=== PATIENT | male | born 1995 | race Hispanic/Latino ===

== ENCOUNTER 2019-01-17 20:26 | Emergency (ER) | payer OTHER ==
[2019-01-17 20:35] VITALS: BP 129/72
--- NOTE | 2019-01-17 20:37 | Event Note ---
ED Screening Note ED Screening Note: R FLANK PAIN DIFFICULT TO URINATE BLOOD IN URINE JUST STARTED TODAY NO VOMITING BM TSO NOMRMAL RX MARISOL PSH NONE PMH ULCERS FIBROMYALGIA K STONES This initial assessment/diagnostic orders/clinical plan/treatment(s) is/are subject to change based on patients health status, clinical progression and re-assessment by fellow clinical providers in the ED. Further treatment and workup at subsequent clinical providers discretion. Patient/guardian urged not to elope from the ED as their condition may be serious if not clinically assessed and managed. Initial orders include: UA LABS
[2019-01-17] MEDS ORDERED: TORADOL IV ONE (21:01)
[2019-01-17] MEDS ORDERED: NACL 0.9% 1000 ML 1,000 ML IV ONE (21:01)
[2019-01-17] MEDS ORDERED: ZOFRAN IV ONE (21:01)
[2019-01-17 21:03] LABS: Hemoglobin 15.5 gm/dl (11.8-15.2); Mean Corpuscular HGB Conc 34 % (32-34); Mean Corpuscular Volume 92 fl (84-94); Platelet Count 223 K/mm3 (140-440); Red Cell Distribution Width 13.5 % (13.2-15.2)
[2019-01-17 21:26] LABS: BUN/Creatinine Ratio 8; Blood Urea Nitrogen 7 mg/dL (9-20); Calcium 10.1 mg/dL (8.4-10.2); Hemolysis Index 21
[2019-01-17] MEDS ORDERED: MORPHINE IV ONE (21:32)
[2019-01-17] MEDS ORDERED: MORPHINE ONE (21:35)
[2019-01-17 22:01] LABS: Bacteria,Urine 2+ /HPF (Negative); Bilirubin,Urine NEG (Negative); Blood,Urine LG (Negative); Color,Urine Yellow (Yellow); Protein,Urine <15 mg/dL mg/dL (Negative); Urobilinogen,Urine < 2.0 mg/dL (<2.0)
--- NOTE | 2019-01-17 22:20 | Cat Scan Report ---
CT abdomen pelvis wo con INDICATION / CLINICAL INFORMATION: abd pain. TECHNIQUE: Axial CT imaging of abdomen and pelvis was performed without IV or oral contrast. Coronal and sagitta l reformatted imaging obtained and reviewed. All CT scans at this location are performed using CT dos e reduction for [facility] by means of automated exposure control. COMPARISON: None available. FINDINGS: CT abdomen without contrast demonstrates mild right hydronephrosis. This is caused by a 3 mm calculus in the distal right ureter at the UVJ. Calculus is on the verge of being passed into the urinary re dder. There are additional tiny calculi throughout the collecting system of the right kidney. Similar findings of tiny punctate calculi are also seen in the left kidney without obstruction. The liver, spleen, pancreas, and adrenal glands all appear grossly unremarkable for a noncontrasted e xam. No gallbladder abnormality noted. CT pelvis does not demonstrate any pelvic mass, free fluid, or focal inflammatory change. GI tract is grossly unremarkable. Visualized lung bases are clear. No significant osseous abnormality noted. IMPRESSION: 1. Mild right hydronephrosis caused by a 3 mm calculus in the very distal right ureter, UVJ level. 2. Bilateral nephrolithiasis. Signer Name: Elissa [place] MD Signed: 01/17/2019 10:16 PM Workstation Name: [id number]
[2019-01-17] MEDS ORDERED: ROCEPHIN/NS 1 GM/50 ML 1 GM/50 ML BAG IV ONE (22:29)
--- NOTE | 2019-01-17 22:35 | Emergency Department Report ---
ED Abdominal Pain HPI - General Chief Complaint: Abdominal Pain Stated Complaint: URINARY RETENTION Time Seen by Provider: 01/17/19 20:35 Source: patient Mode of arrival: Ambulatory Limitations: No Limitations - History of Present Illness Initial Comments: Patient is a 23-year-old white male with history of renal stones who presents for right flank pain 8/10 dysuria and urgency mild hematuria there is nausea no vomiting no fever no chills states DIFFICULT TO URINATE BLOOD IN URINE symptoms STARTED TODAY NO VOMITING. MD Complaint: abdominal pain, flank pain Onset/Timin -: days(s) Location: R flank Radiation: R flank Migration to: R flank Severity: moderate Severity scale (0 -10): 6 Quality: sharp Consistency: constant Improves With: nothing Worsens With: other (voiding ) Associated Symptoms: nausea, dysuria, hematuria. denies: vomiting, diarrhea, fever, chills, constipation, hematemesis, hematochezia, melena, anorexia, syncope - Related Data Previous Rx's Medication Instructions Recorded Last Taken Type Hydromorphone HCl [Dilaudid] 4 mg PO Q4-6H PRN #20 tablet 08/03/13 Unknown Rx Ondansetron [Zofran Odt] 4 mg PO Q6H PRN #8 tab.rapdis 08/03/13 Unknown Rx Ciprofloxacin HCl [Ciprofloxacin 500 mg PO BID 10 Days #20 tab 01/17/19 Unknown Rx TAB] Ketorolac [Toradol] 10 mg PO Q6H PRN #12 tablet 01/17/19 Unknown Rx Tamsulosin [Flomax] 0.4 mg PO QDAY #15 cap 01/17/19 Unknown Rx Allergies Allergy/AdvReac Type Severity Reaction Status Date / Time No Known Allergies Allergy Unverified 08/03/13 13:11 ED Review of Systems ROS: Stated complaint: URINARY RETENTION Other details as noted in HPI ED Past Medical Hx - Past Medical History Previous Medical History?: Yes Additional medical history: H. pyloric, Stomach ulcers, E.coli, kidney stones - Surgical History Past Surgical History?: Yes Additional Surgical History: Endoscopy, Colonoscopy, Tonsillectomy - Social History Smoking Status: Never Smoker Substance Use Type: None - Medications Home Medications: Home Medications Medication Instructions Recorded Confirmed Last Taken Type Hydromorphone HCl [Dilaudid] 4 mg PO Q4-6H PRN #20 tablet 08/03/13 Unknown Rx Ondansetron [Zofran Odt] 4 mg PO Q6H PRN #8 tab.rapdis 08/03/13 Unknown Rx Ciprofloxacin HCl [Ciprofloxacin 500 mg PO BID 10 Days #20 tab 01/17/19 Unknown Rx TAB] Ketorolac [Toradol] 10 mg PO Q6H PRN #12 tablet 01/17/19 Unknown Rx Tamsulosin [Flomax] 0.4 mg PO QDAY #15 cap 01/17/19 Unknown Rx ED Physical Exam - General Limitations: No Limitations General appearance: alert, in no apparent distress - Head Head exam: Present: atraumatic, normocephalic - Eye Eye exam: Present: normal appearance, PERRL, EOMI Pupils: Present: normal accommodation - ENT ENT exam: Present: mucous membranes moist - Neck Neck exam: Present: normal inspection, full ROM. Absent: lymphadenopathy, th yromegaly - Respiratory Respiratory exam: Present: normal lung sounds bilaterally. Absent: respiratory distress, wheezes, stridor, chest wall tenderness - Cardiovascular Cardiovascular Exam: Present: regular rate, normal rhythm, normal heart sounds. Absent: systolic murmur, diastolic murmur, rubs, gallop - GI/Abdominal GI/Abdominal exam: Present: soft, normal bowel sounds. Absent: distended, tenderness, guarding, rebound, rigid, bruit, hernia - Rectal Rectal exam: Present: deferred - Extremities Exam Extremities exam: Present: normal inspection, full ROM, normal capillary refill. Absent: tenderness, pedal edema, joint swelling, calf tenderness - Back Exam Back exam: Present: full ROM, tenderness, CVA tenderness (R), CVA tenderness (L). Absent: muscle spasm, paraspinal tenderness, vertebral tenderness, rash noted - Neurological Exam Neurological exam: Present: alert, oriented X3, CN II-XII intact, normal gait - Psychiatric Psychiatric exam: Present: normal affect, normal mood - Skin Skin exam: Present: warm, dry, intact, normal color. Absent: rash ED Course Vital Signs 01/17/19 01/17/19 20:32 20:36 Temperature 98.7 F 98.7 F Pulse Rate 97 H 97 H Respiratory 18 18 Rate Blood Pressure 129/72 Blood Pressure 129/72 [Left] O2 Sat by Pulse 99 99 Oximetry ED Medical Decision Making - Lab Data Result diagrams: 01/17/19 20:44 01/17/19 20:44 Labs 01/17/19 01/17/19 01/17/19 20:44 20:44 Unknown WBC 9.9 RBC 4.90 Hgb 15.5 H Hct 45.0 MCV 92 MCH 32 MCHC 34 RDW 13.5 Plt Count 223 Sodium 139 Potassium 3.6 Chloride 99.7 Carbon Dioxide 26 Anion Gap 17 BUN 7 L Creatinine 0.9 Estimated GFR > 60 BUN/Creatinine Ratio 8 Glucose 125 H Calcium 10.1 Urine Color Yellow Urine Turbidity Clear Urine pH 6.0 Ur Specific [place] 1.004 Urine Protein <15 mg/dl Urine Glucose (UA) Neg Urine Ketones Neg Urine Blood Lg Urine Nitrite Neg Urine Bilirubin Neg Urine Urobilinogen < 2.0 Ur Leukocyte Esterase Neg Urine WBC (Auto) 1.0 Urine RBC (Auto) 2.0 Urine Bacteria (Auto) 2+ - Radiology Data Radiology results: report reviewed, image reviewed [facility] [address] [place] [address] Cat Scan Report Signed Patient: THERESA MUSTAFA MR#: [id number] : 1995 Acct:[id number] Age/Sex: 23 / M ADM Date: 01/17/19 Loc: ED Attending Dr: Ordering Physician: DEWAYNE HARDIN NP Date of Service: 01/17/19 Procedure(s): CT abdomen pelvis wo con Accession Number(s): [id number] cc: DEWAYNE HARDIN NP CT abdomen pelvis wo con INDICATION / CLINICAL INFORMATION: abd pain. TECHNIQUE: Axial CT imaging of abdomen and pelvis was performed without IV or oral contrast. Coronal and sagittal reformatted imaging obtained and reviewed. All CT scans at this location are performed usin g CT dose reduction for [facility] by means of automated exposure control. COMPARISON: None available. FINDINGS: CT abdomen without contrast demonstrates mild right hydronephrosis. This is ca used by a 3 mm calculus in the distal right ureter at the UVJ. Calculus is on the verge of being passed into the urinary bladder. There are additional tiny calculi throughout the collecting system of the right kidney. Similar findings of tiny punctate calculi are also seen in the left kidney without obstruction. The liver, spleen, pancreas, and adrenal glands all appear grossly unremarkable for a noncontrasted exam. No gallbladder abnormality noted. CT pelvis does not demonstrate any pelvic mass, free fluid, or focal inflammatory change. GI tract is grossly unremarkable. Visualized lung bases are clear. No significant osseous abnormality noted. IMPRESSION: 1. Mild right hydronephrosis caused by a 3 mm calculus in the very distal right ureter, UVJ level. 2. Bilateral nephrolithiasis. Signer Name: Elissa [place] MD Signed: 01/17/2019 10:16 PM Workstation Name: [id number] Transcribed By: Dictated By: Elissa Cam[place] MD Electronically Authenticated By: Elissa [place] MD Signed Date/Time: 01/17/192215 DD/ 11 TD/TT: - Medical Decision Making CT confirms bilateral renal stones with 3 mm right UVJ pain is improved with medications given in ED plan Rocephin 1 g IV given in ED, producing a prescription for Toradol Cipro Flomax patient will follow with urology in 2-3 days return the ED should symptoms worsen or unable to void patient verbalized agreement and understanding discharge plan DC'd home in stable condition at this time. Critical care attestation.: If time is entered above; I have spent that time in minutes in the direct care of this critically ill patient, excluding procedure time. ED Disposition Clinical Impression: Kidney stones Disposition: DC-01 TO HOME OR SELFCARE Is pt being admited?: No Does the pt Need Aspirin: No Condition: Stable Instructions: Kidney Stones (ED) Prescriptions: Ciprofloxacin HCl [Ciprofloxacin TAB] 500 mg PO BID 10 Days #20 tab Tamsulosin [Flomax] 0.4 mg PO QDAY #15 cap Ketorolac [Toradol] 10 mg PO Q6H PRN #12 tablet PRN Reason: Pain Referrals: KILO GOSS MD [Staff Physician] - 3-5 Days Forms: Work/School Release Form(ED) Time of Disposition: 22:58
== END 2019-01-17 23:14 | disposition home or self-care (01) ==
LOC: ED 20:26
DX: N20.0 Calculus of kidney (principal); Z98.890 Other specified postprocedural states; Z79.899 Other long term (current) drug therapy
CPT/HCPCS: 36415; 74176; 80048; 81001; 85027; 96365; 96375; 99284; J0696; J1885; J2270; J2405; J7030; 96361

== ENCOUNTER 2020-04-21 19:25 | Emergency (ER) | payer OTHER ==
[2020-04-21] MEDS ORDERED: TETANUS,DIPHTHERIA TOXOID ADULT 0.5 ML INJ IM STA (23:45)
[2020-04-22] MEDS ORDERED: oxyCODONE /ACETAMINOPHEN 5-325MG TAB ONE (01:03)
[2020-04-22] MEDS ORDERED: oxyCODONE /ACETAMINOPHEN 5-325MG TAB PO ONE (01:04)
[2020-04-22] MEDS ORDERED: IBUPROFEN 600 MG TAB PO ONE ×2 (01:08→01:11)
--- NOTE | 2020-04-22 01:41 | Emergency Department Report ---
<GWYN STRONG - Last Filed: 04/22/20 01:35> ED Eye Problem HPI - General Chief complaint: Eye Problems Stated complaint: LT EYE INJURY Time Seen by Provider: 04/21/20 23:45 Source: patient Mode of arrival: Ambulatory Limitations: No Limitations - History of Present Illness MD chief complaint: eye pain, eye redness, eye injury -: days(s) (2) Onset Description: sudden Location: left eye Place: home If Injury: occurred while hammering/ Eye Symptoms: redness, pain, foreign body sensation If Pain, Quality: throbbing Consistency: constant - Related Data Previous Rx's Medication Instructions Recorded Last Taken Type Hydromorphone HCl [Dilaudid] 4 mg PO Q4-6H PRN #20 tablet 08/03/13 Unknown Rx Ondansetron [Zofran Odt] 4 mg PO Q6H PRN #8 tab.rapdis 08/03/13 Unknown Rx Ciprofloxacin HCl [Ciprofloxacin 500 mg PO BID 10 Days #20 tab 01/17/19 Unknown Rx TAB] Ketorolac [Toradol] 10 mg PO Q6H PRN #12 tablet 01/17/19 Unknown Rx Tamsulosin [Flomax] 0.4 mg PO QDAY #15 cap 01/17/19 Unknown Rx Allergies Allergy/AdvReac Type Severity Reaction Status Date / Time No Known Allergies Allergy Unverified 08/03/13 13:11 ED Review of Systems Comment: All other systems reviewed and negative ED Past Medical Hx - Past Medical History Additional medical history: H. pylori, Stomach ulcers, E.coli, kidney stones - Surgical History Additional Surgical History: Endoscopy, Colonoscopy, Tonsillectomy - Social History Smoking Status: Never Smoker Substance Use Type: None - Medications Home Medications: Home Medications Medication Instructions Recorded Confirmed Last Taken Type Hydromorphone HCl [Dilaudid] 4 mg PO Q4-6H PRN #20 tablet 08/03/13 Unknown Rx Ondansetron [Zofran Odt] 4 mg PO Q6H PRN #8 tab.rapdis 08/03/13 Unknown Rx Ciprofloxacin HCl [Ciprofloxacin 500 mg PO BID 10 Days #20 tab 01/17/19 Unknown Rx TAB] Ketorolac [Toradol] 10 mg PO Q6H PRN #12 tablet 01/17/19 Unknown Rx Tamsulosin [Flomax] 0.4 mg PO QDAY #15 cap 01/17/19 Unknown Rx ED Physical Exam - General Limitations: No Limitations General appearance: alert, in no apparent distress - Head Head exam: Present: atraumatic, normocephalic - Eye Eye exam: Present: normal appearance Pupils: Present: normal accommodation - Expanded Eye Exam Expanded Eyelids: Normal Inspection: Right Pupils: Regular, Round: Bilateral, Reactive: Bilateral Sclera/Conjunctival: Injection: Left, Foreign Body: Left Anterior chamber: Normal Inspection: Bilateral Posterior chamber: Deferred: Bilateral - ENT ENT exam: Present: normal exam, mucous membranes moist, TM's normal bilaterally - Neck Neck exam: Present: normal inspection, full ROM - Respiratory Respiratory exam: Present: normal lung sounds bilaterally. Absent: respiratory distress, wheezes, rales, chest wall tenderness, accessory muscle use, decreased breath sounds - Cardiovascular Cardiovascular Exam: Present: regular rate, normal rhythm. Absent: systolic murmur, diastolic murmur, rubs, gallop - GI/Abdominal GI/Abdominal exam: Present: soft, normal bowel sounds - Rectal Rectal exam: Present: deferred - Extremities Exam Extremities exam: Present: normal inspection, normal capillary refill - Back Exam Back exam: Present: normal inspection - Neurological Exam Neurological exam: Present: alert, oriented X3 - Psychiatric Psychiatric exam: Present: normal affect, normal mood - Skin Skin exam: Present: warm, dry, intact, normal color. Absent: rash ED Course - Consultations Consultation #1: 04/22/20 01:46 Case discussed with machine shop supervisor Dr. Addison of [place] who advised that the patient transferred to [place] so that they can remove the foreign body ED Medical Decision Making - Medical Decision Making 24-year-old male was a foreign body to the left eye from grinding a piece of metal unable to be removed emergency department with irrigation a Q-tip. Please evaluate tetanus shot contacted the ophthalmology at [place] who advised need to remove the foreign body today as had already been present for 2 days. Discussed with the [place] transfer center and ophthalmology transfer has been arranged for him to be taken to [place] for removal. He was also evaluated by the attending Dr. Maravilla ED. ED Disposition Clinical Impression: Eye foreign body Qualifiers: Encounter type: initial encounter Laterality: left Qualified Code(s): T15.92XA - Foreign body on external eye, part unspecified, left eye, initial encounter Disposition: DC/TX-70 ANOTHER TYPE HLTHCARE Is pt being admited?: No Does the pt Need Aspirin: No Condition: Critical Referrals: PRIMARY CARE, [Primary Care Provider] - 3-5 Days <YVONNE STANTON III - Last Filed: 04/22/20 02:04> ED Review of Systems ROS: Stated complaint: LT EYE INJURY Other details as noted in HPI ED Course Vital Signs 04/21/20 04/22/20 20:10 01:45 Temperature 98.9 F 98.3 F Pulse Rate 118 H 88 Respiratory 18 17 Rate Blood Pressure 141/88 Blood Pressure 128/77 [Right] O2 Sat by Pulse 98 98 Oximetry - Reevaluation(s) Reevaluation #1: I reviewed the findings and management of this patient in real-time and I have personally seen and examined this patient and participated in the decision making for this patient with the midlevel. Patient is a 24-year-old male with a metal foreign body in his left eye. Patient complains of eye pain and blurry vision to the left eye. I attempted multiple times to flush and remove the foreign body. I discussed the possibility of transfer. Patient agrees with transfer. I examined the patient. Patient's lung sounds are clear. Patient's CV exam is within normal limits and shows normal S1 and S2. Patient's left eye shows a corneal abrasion and a foreign body within the iris. 04/21/20 23:30 Reevaluation #2: I discussed all results with patient. I discussed plan of care with patient. Patient agrees with plan of care and and transfer. Patient will be transferred to [place]. 04/21/20 2350 Critical Care Time: Yes Critical care time in (mins) excluding proc time.: 35 Critical care attestation.: If time is entered above; I have spent that time in minutes in the direct care of this critically ill patient, excluding procedure time. Critical Care Time: 35 minutes ED Disposition Is pt being admited?: No Does the pt Need Aspirin: No Time of Disposition: 02:04
[2020-04-22 01:46] VITALS: BP 128/77
== END 2020-04-22 04:10 | disposition other institution (70) ==
LOC: ED 19:25
DX: T15.92XA Foreign body on external eye, part unspecified, left eye, initial encounter (principal); X58.XXXA Exposure to other specified factors, initial encounter; Y93.89 Activity, other specified; Y92.89 Other specified places as the place of occurrence of the external cause; Y99.8 Other external cause status
CPT/HCPCS: 90471; 90714

== ENCOUNTER 2020-06-04 12:02 | Emergency (ER) | payer SELFPAY ==
[2020-06-04 12:07] VITALS: BP 140/96
[2020-06-04] MEDS ORDERED: KETOROLAC 60 MG/2 ML INJ IM ONE (13:01)
--- NOTE | 2020-06-04 13:05 | Emergency Department Report ---
ED General Adult HPI - General Chief complaint: Dental/Oral Stated complaint: LFT SIDE TOOTHACHE PAIN Time Seen by Provider: 06/04/20 12:08 Source: patient Mode of arrival: Ambulatory Limitations: No Limitations - History of Present Illness Initial comments: 25-year-old male presents with complaints of left upper dental pain for the past few days. He states he did see a dental specialist 2 days ago and was prescribed Amoxil and hydrocodone, however the pain is worsening. He denies any fever/chills/sweats or difficulty opening his jaw/swallowing. Patient rates his pain as a 10/10 in severity states it worsens with chewing. He does have a follow-up appointment with his dentist on Sunday per patient to get his tooth pulled Severity scale (0 -10): 10 - Related Data Previous Rx's Medication Instructions Recorded Last Taken Type Hydromorphone HCl [Dilaudid] 4 mg PO Q4-6H PRN #20 tablet 08/03/13 Unknown Rx Ondansetron [Zofran Odt] 4 mg PO Q6H PRN #8 tab.rapdis 08/03/13 Unknown Rx Ciprofloxacin HCl [Ciprofloxacin 500 mg PO BID 10 Days #20 tab 01/17/19 Unknown Rx TAB] Ketorolac [Toradol] 10 mg PO Q6H PRN #12 tablet 01/17/19 Unknown Rx Tamsulosin [Flomax] 0.4 mg PO QDAY #15 cap 01/17/19 Unknown Rx Clindamycin [Clindamycin CAP] 300 mg PO Q6H 7 Days #28 capsule 06/04/20 Unknown Rx Allergies Allergy/AdvReac Type Severity Reaction Status Date / Time No Known Allergies Allergy Unverified 08/03/13 13:11 ED Review of Systems ROS: Stated complaint: LFT SIDE TOOTHACHE PAIN Other details as noted in HPI Constitutional: denies: chills, diaphoresis, fever, malaise ENT: dental pain. denies: throat pain Respiratory: denies: cough, shortness of breath Gastrointestinal: denies: abdominal pain, nausea, vomiting Musculoskeletal: denies: arthralgia Skin: denies: rash, change in color ED Past Medical Hx - Past Medical History Previous Medical History?: Yes Additional medical history: H. pylori, Stomach ulcers, E.coli, kidney stones. fibromyaliga - Surgical History Past Surgical History?: Yes Additional Surgical History: Endoscopy, Colonoscopy, Tonsillectomy - Social History Smoking Status: Never Smoker Substance Use Type: None - Medications Home Medications: Home Medications Medication Instructions Recorded Confirmed Last Taken Type Hydromorphone HCl [Dilaudid] 4 mg PO Q4-6H PRN #20 tablet 08/03/13 Unknown Rx Ondansetron [Zofran Odt] 4 mg PO Q6H PRN #8 tab.rapdis 08/03/13 Unknown Rx Ciprofloxacin HCl [Ciprofloxacin 500 mg PO BID 10 Days #20 tab 01/17/19 Unknown Rx TAB] Ketorolac [Toradol] 10 mg PO Q6H PRN #12 tablet 01/17/19 Unknown Rx Tamsulosin [Flomax] 0.4 mg PO QDAY #15 cap 01/17/19 Unknown Rx Clindamycin [Clindamycin CAP] 300 mg PO Q6H 7 Days #28 capsule 06/04/20 Unknown Rx ED Physical Exam - General Limitations: No Limitations General appearance: alert, in no apparent distress - Head Head exam: Present: atraumatic, normocephalic - Eye Eye exam: Present: normal appearance. Absent: scleral icterus - Expanded ENT Exam Expanded Mouth exam: Present: tongue normal. Absent: drooling, trismus, muffled voice Teeth exam: Present: dental caries, dental tenderness #. Absent: other (No obvious abscess noted) Throat exam: Positive: normal inspection - Neck Neck exam: Present: full ROM - Respiratory Respiratory exam: Present: normal lung sounds bilaterally. Absent: respiratory distress - Cardiovascular Cardiovascular Exam: Present: regular rate, normal rhythm - Back Exam Back exam: Present: normal inspection - Neurological Exam Neurological exam: Present: alert, oriented X3 - Psychiatric Psychiatric exam: Present: normal affect, normal mood ED Course Vital Signs 06/04/20 06/04/20 12:04 13:27 Temperature 98.2 F Pulse Rate 114 H 88 Respiratory 18 16 Rate Blood Pressure 140/96 [Right] O2 Sat by Pulse 100 99 Oximetry ED Medical Decision Making - Medical Decision Making 25-year-old male presents with complaints of left upper dental pain for the past few days. He states he did see a dental specialist 2 days ago and was prescribed Amoxil and hydrocodone, however the pain is worsening. He denies any fever/chills/sweats or difficulty opening his jaw/swallowing. Patient rates his pain as a 10/10 in severity states it worsens with chewing. He does have a follow-up appointment with his dentist on Sunday per patient to get his tooth pulled Amoxil changed to clindamycin. Patient given Toradol for pain control. Recommend follow-up with dental specialist as scheduled. Discussed signs and symptoms that should prompt immediate return to the emergency department in detail with patient verbalized understanding. Critical care attestation.: If time is entered above; I have spent that time in minutes in the direct care of this critically ill patient, excluding procedure time. ED Disposition Clinical Impression: Infected dental caries Disposition: DC- TO HOME OR SELFCARE Is pt being admited?: No Condition: Stable Instructions: Dental Abscess Additional Instructions: Is follow-up with your dental specialist on 06/07/2020 Prescriptions: Clindamycin [Clindamycin CAP] 300 mg PO Q6H 7 Days #28 capsule Referrals: PRIMARY CARE, [Primary Care Provider] - 3-5 Days
== END 2020-06-04 13:28 | disposition home or self-care (01) ==
LOC: ED 12:02
DX: K02.9 Dental caries, unspecified (principal); Z98.890 Other specified postprocedural states; Z79.899 Other long term (current) drug therapy
CPT/HCPCS: 96372; 99282; J1885

== ENCOUNTER 2020-07-19 18:27 | Emergency (ER) | payer SELFPAY ==
[2020-07-19 18:46] VITALS: BP 140/86
--- NOTE | 2020-07-19 19:20 | XRay Report ---
XR hand 3+V RT INDICATION: Dropped motor on hand COMPARISON: None. FINDINGS/IMPRESSION: Comminuted moderately displaced fracture of the distal right fifth metacarpal. The distal portion is angulated volarly and medially. Signer Name: Feliciano Veliz MD Signed: 07/19/2020 7:16 PM Workstation Name: [id number]
--- NOTE | 2020-07-19 19:27 | Emergency Department Report ---
ED Upper Extremity Inj HPI - General Chief Complaint: Extremity Injury, Upper Stated Complaint: RT HAND INJURY Time Seen by Provider: 07/19/20 18:45 Source: patient Mode of arrival: Ambulatory Limitations: No Limitations - History of Present Illness Initial Comments: Patient is a 25-year-old male presents emergency room complaints of a right hand injury that occurred a few days ago. 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 He states since then he has had right hand pain and swelling. He states he has pain with movement. He denies any numbness or weakness. He is still able to move the digits. He denies ever injuring in the past. He states he did have a small abrasion. He states his tetanus immunization is up-to-date. No past medical history. No allergies medications. He states that he smoked a cigarette just prior to walking into the ED and states that why his heart rate is elevated. - Related Data Previous Rx's Medication Instructions Recorded Last Taken Type Hydromorphone HCl [Dilaudid] 4 mg PO Q4-6H PRN #20 tablet 08/03/13 Unknown Rx Ondansetron [Zofran Odt] 4 mg PO Q6H PRN #8 tab.rapdis 08/03/13 Unknown Rx Ciprofloxacin HCl [Ciprofloxacin 500 mg PO BID 10 Days #20 tab 01/17/19 Unknown Rx TAB] Ketorolac [Toradol] 10 mg PO Q6H PRN #12 tablet 01/17/19 Unknown Rx Tamsulosin [Flomax] 0.4 mg PO QDAY #15 cap 01/17/19 Unknown Rx Clindamycin [Clindamycin CAP] 300 mg PO Q6H 7 Days #28 capsule 06/04/20 Unknown Rx HYDROcodone/APAP 5-325 [[place] 1 each PO Q6HR PRN #12 tablet 07/19/20 Unknown Rx 5/325] Ibuprofen [Motrin 600 MG tab] 600 mg PO Q8H PRN #20 tablet 07/19/20 Unknown Rx Allergies Allergy/AdvReac Type Severity Reaction Status Date / Time No Known Allergies Allergy Unverified 08/03/13 13:11 ED Review of Systems ROS: Stated complaint: RT HAND INJURY Other details as noted in HPI Comment: All other systems reviewed and negative ED Past Medical Hx - Past Medical History Previous Medical History?: Yes Additional medical history: H. pylori, Stomach ulcers, E.coli, kidney stones. fibromyaliga - Surgical History Past Surgical History?: Yes Additional Surgical History: Endoscopy, Colonoscopy, Tonsillectomy - Social History Smoking Status: Never Smoker Substance Use Type: None - Medications Home Medications: Home Medications Medication Instructions Recorded Confirmed Last Taken Type Hydromorphone HCl [Dilaudid] 4 mg PO Q4-6H PRN #20 tablet 08/03/13 Unknown Rx Ondansetron [Zofran Odt] 4 mg PO Q6H PRN #8 tab.rapdis 08/03/13 Unknown Rx Ciprofloxacin HCl [Ciprofloxacin 500 mg PO BID 10 Days #20 tab 01/17/19 Unknown Rx TAB] Ketorolac [Toradol] 10 mg PO Q6H PRN #12 tablet 01/17/19 Unknown Rx Tamsulosin [Flomax] 0.4 mg PO QDAY #15 cap 01/17/19 Unknown Rx Clindamycin [Clindamycin CAP] 300 mg PO Q6H 7 Days #28 capsule 06/04/20 Unknown Rx HYDROcodone/APAP 5-325 [[place] 1 each PO Q6HR PRN #12 tablet 07/19/20 Unknown Rx 5/325] Ibuprofen [Motrin 600 MG tab] 600 mg PO Q8H PRN #20 tablet 07/19/20 Unknown Rx ED Physical Exam - General Limitations: No Limitations General appearance: alert, in no apparent distress - Head Head exam: Present: atraumatic, normocephalic - Eye Eye exam: Present: normal appearance - ENT ENT exam: Present: mucous membranes moist - Respiratory Respiratory exam: Absent: respiratory distress, accessory muscle use - Extremities Exam Extremities exam: Present: other (ttp and swelling present to the 4th and 5th metacarpal and 4th and 5th digits, ecchymosis present, small healed abrasion, FROM of the digits, hand, wrist, no ttp of the wrist, no snuffbox ttp, neurovascularly intact) - Neurological Exam Neurological exam: Present: alert, oriented X3 - Psychiatric Psychiatric exam: Present: normal affect, normal mood - Skin Skin exam: Present: warm, dry ED Course Vital Signs 07/19/20 07/19/20 18:45 20:10 Temperature 98.6 F Pulse Rate 124 H 92 H Respiratory 20 16 Rate Blood Pressure 140/86 O2 Sat by Pulse 99 98 Oximetry - Consultations Consultation #1: 07/19/20 20:[address] Noel, orthopedic, he reviewed images, agrees with ulnar gutter splint and will follow up with patient as an outpatient ED Medical Decision Making - Lab Data Vital Signs 07/19/20 07/19/20 18:45 20:10 Temperature 98.6 F Pulse Rate 124 H 92 H Respiratory 20 16 Rate Blood Pressure 140/86 O2 Sat by Pulse 99 98 Oximetry - Radiology Data Radiology results: report reviewed Ordering Physician: FELICIANO BACON Date of Service: 07/19/20 Procedure(s): XR hand 3+V RT Accession Number(s): [id number] cc: FELICIANO BACON Fluoro Time In Minutes: XR hand 3+V RT INDICATION: Dropped motor on hand COMPARISON: None. FINDINGS/IMPRESSION: Comminuted moderately displaced fracture of the distal right fifth metacarpal. The distal portion is angulated volarly and medially. Signer Name: Feliciano Veliz MD Signed: 07/19/2020 7:16 PM Workstation Name: [id number] Transcribed By: DARBY Dictated By: Feliciano Veliz MD Electronically Authenticated By: Feliciano Veliz MD Signed Date/Time: 07/19/201915 DD/ 14 TD/TT: - Medical Decision Making Patient is a 25-year-old male presents emergency room complaints of a right hand injury that occurred a few days ago. 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 He states since then he has had right hand pain and swelling. He states he has pain with movement. He denies any numbness or weakness. He is still able to move the digits. He denies ever injuring in the past. He states he did have a small abrasion. He states his tetanus immunization is up-to-date. No past medical history. No allergies medications. He states that he smoked a cigarette just prior to walking into the ED and states that why his heart rate is elevated. Initial vitals with tachycardia which improved to normal upon repeat. On exam: ttp and swelling present to the 4th and 5th metacarpal and 4th and 5th digits, ecchymosis present, small healed abrasion, FROM of the digits, hand, wrist, no ttp of the wrist, no snuffbox ttp, neurovascularly intact. XR right hand: Comminuted moderately displaced fracture of the distal right fifth metacarpal. The distal portion is angulated volarly and medially. Discussed case with Dr. Noel, orthopedic, he reviewed images, agrees with ulnar gutter splint and will follow up with patient as an outpatient. Ulnar gutter splint placed by email deployment specialist and patient remained neuro vascularly intact. Discussed all results with patient and answered questions and discussed the importance of orthopedic follow-up. Patient given prescription for ibuprofen and [place]. Advised patient Please take medication as prescribed. Do not drive or operate machinery while taking pain medication. Please do not remove splint. Follow-up with orthopedic doctor. Is very important that you follow-up. Return to emergency room for new or worsening symptoms. Critical care attestation.: If time is entered above; I have spent that time in minutes in the direct care o f this critically ill patient, excluding procedure time. ED Disposition Clinical Impression: Boxers fracture Qualifiers: Encounter type: initial encounter Fracture type: closed Qualified Code(s): S62.339A - Displaced fracture of neck of unspecified metacarpal bone, initial encounter for closed fracture Disposition: DC- TO HOME OR SELFCARE Is pt being admited?: No Does the pt Need Aspirin: No Condition: Stable Instructions: Boxer's Fracture Additional Instructions: Please take medication as prescribed. Do not drive or operate machinery while taking pain medication. Please do not remove splint. Follow-up with orthopedic doctor. Is very important that you follow-up. Return to emergency room for new or worsening symptoms. Prescriptions: Ibuprofen [Motrin 600 MG tab] 600 mg PO Q8H PRN #20 tablet PRN Reason: Pain, Moderate (4-6) HYDROcodone/APAP 5-325 [[place] 5/325] 1 each PO Q6HR PRN #12 tablet PRN Reason: Pain , Severe (7-10) Referrals: ERASTO NOEL MD [Staff Physician] - 3-5 Days [facility] [Provider Group] - 3-5 Days Time of Disposition: 19:26 Print Language: SPANISH
== END 2020-07-19 20:25 | disposition home or self-care (01) ==
LOC: ED 18:27
DX: S62.339A Displaced fracture of neck of unspecified metacarpal bone, initial encounter for closed fracture (principal); Z79.899 Other long term (current) drug therapy; Z90.49 Acquired absence of other specified parts of digestive tract; X58.XXXA Exposure to other specified factors, initial encounter; Y93.89 Activity, other specified; Y92.89 Other specified places as the place of occurrence of the external cause; Y99.8 Other external cause status